=== PATIENT | female | born 1970 | race American Indian/Alaskan Native ===

== ENCOUNTER 2016-09-28 14:37 | Emergency (ER) | payer MEDICARE ==
[2016-09-28 15:35] LABS: Urine Drugs of Abuse Note Disclamer
[2016-09-28 15:57] LABS: Bilirubin,Urine NEG (Negative); Blood,Urine SM (Negative); Ketones,Urine NEG (Negative); Leukocyte Esterase,Urine NEG (Negative); Nitrite,Urine NEG (Negative); RBC,Urine < 1.0 /HPF (0.0-6.0); Urobilinogen,Urine < 2.0 mg/dL (<2.0)
[2016-09-28 15:59] LABS: WBC,Urine < 1.0 /HPF (0.0-6.0)
[2016-09-28 16:09] LABS: Basophils % (Auto) 1.6 % (0.0-1.8); Eosinophils % (Auto) 2.2 % (0.0-4.3); Hematocrit 36.8 % (30.3-42.9); Hemoglobin 12.1 gm/dl (10.1-14.3); Mean Corpuscular HGB Conc 33 % (30-34); Mean Corpuscular Hemoglobin 27 pg (28-32); Mean Corpuscular Volume 81 fl (79-97); Platelet Count 314 K/mm3 (140-440); Red Blood Count 4.55 M/mm3 (3.65-5.03); Red Cell Distribution Width 14.7 % (13.2-15.2); White Blood Count 7.2 K/mm3 (4.5-11.0)
[2016-09-28 16:21] LABS: Anion Gap 19 mmol/L; Blood Urea Nitrogen 7 mg/dL (7-17); Calcium 10.1 mg/dL (8.4-10.2); Carbon Dioxide 25 mmol/L (22-30); Chloride 96.1 mmol/L (98-107); Glucose 154 mg/dL (65-100); Potassium 3.3 mmol/L (3.6-5.0); Sodium 137 mmol/L (137-145)
[2016-09-28] MEDS ORDERED: K-DUR PO ONE (17:23)
[2016-09-28] MEDS ORDERED: NACL 0.9% 1000 ML 1,000 ML IV ONE (17:23)
--- NOTE | 2016-09-28 17:26 | Emergency Department Report ---
HPI - General Chief Complaint: Psych Time Seen by Provider: 09/28/16 16:44 - HPI HPI: The patient is a 46-year-old female who presents for evaluation of mental health. The patient reports 5 days of constant and severe sadness, exacerbated with decreased methadone use. The patient reports associated feelings of hopelessness and suicidal ideation. She states that she has follow-up planned to hang herself in a basement. She has also experienced auditory hallucinations , voices. The patient denies fever, headache, unexplained weight loss or weight gain, heat or cold intolerance, skin, hair, or nail changes, neuro deficits, homicidal ideations, visual hallucinations. ED Past Medical Hx - Past Medical History Previous Medical History?: Yes Hx Hypertension: Yes Hx Psychiatric Treatment: Yes (bipolar) - Surgical History Past Surgical History?: Yes Additional Surgical History: Papi knee replacement, Hysterectomy - Social History Smoking Status: Current Every Day Smoker Substance Use Type: Alcohol, Prescribed - Medications Home Medications: Home Medications Medication Instructions Recorded Confirmed Last Taken Type Bupropion HCl [Wellbutrin XL] 300 mg PO BID 09/28/16 09/28/16 Unknown History Furosemide [Lasix] 20 mg PO BID 09/28/16 09/28/16 Unknown History Glimepiride [Amaryl] 4 mg PO BID 09/28/16 09/28/16 Unknown History Haloperidol [Haldol] 10 mg PO BID 09/28/16 09/28/16 Unknown History [place] 300 mg PO BID 09/28/16 09/28/16 Unknown History Losartan/Hydrochlorothiazide 1 each PO DAILY 09/28/16 09/28/16 Unknown History [Losartan-Hctz 50-12.5 mg Tab] Ranitidine HCl [Acid Control] 150 mg PO BID 09/28/16 09/28/16 Unknown History Zolpidem [Ambien] 10 mg PO QHS 09/28/16 09/28/16 Unknown History ED Review of Systems ROS: Stated complaint: SUICIDAL Other details as noted in HPI Constitutional: denies: fever ENT: denies: throat or neck pain Respiratory: denies: cough, shortness of breath Cardiovascular: denies: chest pain Endocrine: denies unexplained weight loss or gain Gastrointestinal: denies: abdominal pain, nausea Genitourinary: denies: dysuria Musculoskeletal: denies: leg swelling Skin: denies: rash Neurological: denies: headache Hematological/Lymphatic: denies: easy bleeding or easy bruising Psych: reports sadness & hopelessness Physical Exam - Physical Exam Vital Signs: Vital Signs 09/28/16 09/28/16 09/28/16 14:57 15:58 16:00 Temperature 98.6 F 98.6 F Pulse Rate 103 H 98 H Respiratory 19 16 16 Rate Blood Pressure 151/79 Blood Pressure 130/78 [Right] O2 Sat by Pulse 100 97 97 Oximetry Physical Exam: General: well-nourished, well-developed, no acute distress Head: Normocephalic, atraumatic Eyes: normal sclera ENT: Mucous membranes are pink and moist Neck: trachea midline, neck supple, No neck stiffness, no cervical adenopathy Respiratory: Breath sounds equal bilaterally, no wheezing, rales, or rhonchi Cardio: S1 and S2 present, no murmurs, rubs, gallops, capillary refill is brisk Abdomen: Normoactive bowel sounds, soft abdomen, no rigidity, no guarding or rebound tenderness Musc: No pitting edema Skin: No rash Neuro: no facial drooping, normal speech Psych: Flat affect, depressed mood, poor insight, positive suicidal ideation ED Course Vital Signs 09/28/16 09/28/16 09/28/16 14:57 15:58 16:00 Temperature 98.6 F 98.6 F Pulse Rate 103 H 98 H Respiratory 19 16 16 Rate Blood Pressure 151/79 Blood Pressure 130/78 [Right] O2 Sat by Pulse 100 97 97 Oximetry ED Medical Decision Making - Lab Data Result diagrams: 09/28/16 15:45 09/28/16 15:45 - Medical Decision Making The patient was seen and examined by myself. The patient is placed on a alumni coordinator and continuous pulse ox. On initial evaluation, the patient was found to be in no distress. Labs are obtained. Lab results revealed mild hypokalemia, potassium 3.1, and mild hyperglycemia, glucose 154. The patient is given 1 L of saline fluid bolus for treatment of hyperglycemia, and Gladys Dur for treatment of low potassium. The patient is medically clear. Mental health is consulted. Mental health evaluates the patient and agrees that the patient is at risk of harm to self. A 1013 is completed. The patient will be admitted to a psychiatric facility once bed placement is obtained. Critical care attestation.: If time is entered above; I have spent that time in minutes in the direct care of this critically ill patient, excluding procedure time. ED Disposition Clinical Impression: Suicidal ideation, Hypokalemia, Hyperglycemia Depression Qualifiers: Depression Type: major depressive disorder Major depression recurrence: single episode Active/Remission status: currently active Major depression episode severity: severe Psychotic features: with psychotic features Qualified Code(s): F32.3 - Major depressive disorder, single episode, severe with psychotic features Disposition: DC/TX PSY HOSP/PSY UNIT Is pt being admited?: No Does the pt Need Aspirin: No Condition: Stable Referrals: ARMEN BERMUDEZ MD [Primary Care Provider] - 3-5 Days Time of Disposition: 17:11
[2016-09-28] MEDS ORDERED: TYLENOL PO PRN (22:50)
[2016-09-28] MEDS ORDERED: ALUM-MAG HYDROX-SIMETH 200-200-20MG/5ML PO PRN (22:50)
[2016-09-28] MEDS ORDERED: MILK OF MAGNESIA PO PRN (22:50)
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
[2016-09-29 14:40] VITALS: BP 122/80
[2016-09-29] MEDS ORDERED: AMARYL PO SCH (22:00)
[2016-09-29] MEDS ORDERED: LASIX PO SCH (22:00)
[2016-09-30] MEDS ORDERED: NON-FORMULARY (Losartan/Hydrochlorothiazide [Losartan-Hctz 50-12.5 Mg Tab] 1 EACH) PO SCH (10:00)
[2016-09-30] MEDS ORDERED: COZAAR PO SCH (10:00)
[2016-09-30] MEDS ORDERED: HCTZ PO SCH (10:00)
== END 2016-09-29 19:20 ==
LOC: EEVIPCON 14:37 → ED 14:37
DX: R45.851 Suicidal ideations (principal); E87.6 Hypokalemia; F32.3 Major depressive disorder, single episode, severe with psychotic features; R73.9 Hyperglycemia, unspecified; I10 Essential (primary) hypertension; F31.9 Bipolar disorder, unspecified; F17.200 Nicotine dependence, unspecified, uncomplicated
CPT/HCPCS: 36415; 80048; 80307; 81001; 85025; 96360; 99285; G0480; J7030; 80320